=== PATIENT | female | born 1995 | race Hispanic/Latino ===

== ENCOUNTER 2022-02-11 11:54 | Emergency (ER) | payer OTHER ==
[~2022-02-11] VITALS: Ht 167.6 cm; Wt 84.0 kg
[2022-02-11] MEDS ORDERED: METHADONE HCL10 MG PO (15:11)
--- OUTSIDE RECORDS SUMMARY | 2022-02-11 16:46 | XMS ---
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 E.D. VISIT COUNT (12 MO.) 1 [facility] 1 YANE Cook TOTAL 2 NOTE: Visits indicate total known visits. ED/UCC VISIT TRACKING (12 MO.) 02/11/2022 11:55 [facility] TYPE: Emergency COMPLAINT: - URINE PROBLEM 10/23/2021 22:36 [facility] [place] TYPE: Emergency COMPLAINT: - VOMITING DIAGNOSES: - VOMITING INPATIENT VISIT TRACKING (12 MO.) No inpatient visits to display in this time frame [email or web address]
[2022-02-11] MEDS ORDERED: AMOX TR-K CLV1 EAC1 PO (18:52)
== END 2022-02-11 18:55 | disposition home or self-care (01) ==
LOC: ED 11:54
DX: O99.513 Diseases of the respiratory system complicating pregnancy, third trimester (principal); Z3A.30 30 weeks gestation of pregnancy; Z79.899 Other long term (current) drug therapy; Z20.822 Contact with and (suspected) exposure to COVID-19
CPT/HCPCS: 71045; 81001; 87502; 99283-25; C9803; U0003